=== PATIENT | male | born 1980 | race Caucasian/White ===

== ENCOUNTER 2019-04-10 15:18 | Emergency (ER) | payer SELFPAY ==
[~2019-04-10] VITALS: Wt 79.0 kg
[2019-04-10] MEDS ORDERED: PIPER-TAZO 3.375 GM IV (PMX) 100 ML IVPB STA (15:44)
[2019-04-10] MEDS ORDERED: VANCOMYCIN 1 GM (PMX) 250 ML IVPB STA (15:44)
[2019-04-10] MEDS ORDERED: CLINDAMYCIN 900 MG/D5W (PMX) 50 ML IVPB STA (15:44)
--- NOTE | 2019-04-10 19:07 | ERD ---
ER Documentation Chief Complaint Chief Complaint RIGHT UPPER ARM REDNESS, SWELLING S/P IN DRUG USE HPI This is a 38-year-old male with a past medical history of heroin abuse. The patient indicates he last used heroin intravenously roughly 6 hours prior to arrival. The patient states that several weeks ago he noticed swelling and redness to his right forearm. He indicates that he is injected multiple times into the right forearm. He also noticed pus coming from the right forearm. He said no fevers or shaking or chills. He states there is pain around the abscess site which he attempted to drain himself by pushing on the abscess site. He denies any difficulty breathing. He has no chest pain. ROS All systems reviewed and are negative except as per history of present illness. Medications Home Meds No Active Prescriptions or Reported Meds Allergies Allergies: Coded Allergies: No Known Allergy (Unverified , 04/10/19) PMhx/Soc Medical and Surgical Hx: pt denies Medical Hx, pt denies Surgical Hx Hx Alcohol Use: Yes (social) Hx Substance Use: Yes (IV heroin use in am) Hx Tobacco Use: Yes Smoking Status: Light tobacco smoker Physical Exam Vitals Vital Signs Date Temp Pulse Resp B/P (MAP) Pulse Ox O2 O2 Flow FiO2 Time Delivery Rate 04/10/19 98.1 68 18 121/68 99 15:23 (85) Physical Exam Constitutional:Well-developed. Well-nourished. HEENT:Normocephalic. Atraumatic.Pupils were 3 mm equal round reactive to light. Moist mucous membranes.No tonsillar exudates. Neck: No nuchal rigidity. No lymphadenopathy. No posterior cervical spine t enderness or step-offs. Respiratory: Not using accessory muscles of respiration.Lungs were clear to auscultation bilaterally. No rhonchi. No rales. No wheezing. Cardiovascular: Regular rate regular rhythm.No murmurs. No rubs were appreciated.S1, S2 normal. Distal pulses are palpable 2+ bilaterally. GI: Abdomen was soft. Nontender. Non Distended. No pulsatile abdominal masses or bruits. No rebound. No guarding. Bowel sounds were present and normal. Muscle skeletal: Full range of motion of both the upper and lower extremities bilaterally.Normal muscle tone.No assymetrical calf tenderness or swelling. No tenderness with flexion extension of the left of the right elbow. No tenderness with passive extension of the muscles of the right upper extremity. Skin: No petechia, no purpura. No lesions on the palms or the soles of the feet. No maculopapular rash. Multiple pot leavitt present on the flexor surfaces of the bilateral upper extremities. Erythremia warmth tenderness with induration over the flexor surface of the proximal right forearm. Compartments are soft of the bilateral upper extremities. Abscess site was actively draining pustular material. NEURO: Patient was alert, awake, orientated x3.No facial droop. Gait observed and normal with no ataxia.Speech had regular rate and rhythm. No focal neurological deficits. Result Diagram: 04/10/19 1616 04/10/19 1616 Results 24 hrs Laboratory Tests Test 04/10/19 16:16 04/10/19 16:24 White Blood Count 9.9 10^3/ul Red Blood Count 4.07 10^6/ul Hemoglobin 10.6 g/dl Hematocrit 32.8 % Mean Corpuscular Volume 80.6 fl Mean Corpuscular Hemoglobin 26.0 pg Mean Corpuscular Hemoglobin Concent 32.3 g/dl Red Cell Distribution Width 12.7 % Platelet Count 336 10^3/UL Mean Platelet Volume 9.2 fl Immature Granulocytes % 0.500 % Neutrophils % 70.8 % Lymphocytes % 19.6 % Monocytes % 7.6 % Eosinophils % 1.0 % Basophils % 0.5 % Nucleated Red Blood Cells % 0.0 /100WBC Immature Granulocytes # 0.050 10^3/ul Neutrophils # 7.0 10^3/ul Lymphocytes # 1.9 10^3/ul Monocytes # 0.8 10^3/ul Eosinophils # 0.1 10^3/ul Basophils # 0.1 10^3/ul Nucleated Red Blood Cells # 0.0 10^3/ul Prothrombin Time 14.0 Sec Prothrombin Time Ratio 1.1 INR International Normalized Ratio 1.07 Activated Partial Thromboplast Time 33.9 Sec Sodium Level 138 mmol/L Potassium Level 4.2 mmol/L Chloride Level 100 mmol/L Carbon Dioxide Level 28 mmol/L Anion Gap 10 Blood Urea Nitrogen 11 mg/dl Creatinine 0.74 mg/dl Est Glomerular Filtrat Rate mL/min > 60 mL/min Glucose Level 95 mg/dl Calcium Level 8.8 mg/dl Total Bilirubin 0.4 mg/dl Direct Bilirubin 0.00 mg/dl Indirect Bilirubin 0.4 mg/dl Aspartate Amino Transf (AST/SGOT) 32 IU/L Alanine Aminotransferase (ALT/SGPT) 37 IU/L Alkaline Phosphatase 115 IU/L Total Protein 8.8 g/dl Albumin 3.8 g/dl Globulin 5.00 g/dl Albumin/Globulin Ratio 0.76 Amylase Level 70 U/L Lipase 30 U/L POC Venous Lactate 1.0 mmol/L Current Medications Medications Dose Sig/Alejandra Start Time Status Last (Trade) Ordered Route PRN Stop Time Admin Dose Reason Admin Vancomycin 250 ml @ ONCE STAT 04/10/19 DC 04/10/19 HCl 125 mls/hr IVPB 15:44 04/10/19 17:47 17:43 Clindamycin 50 ml @ 50 ONCE STAT 04/10/19 DC 04/10/19 HCl/ mls/hr IVPB 15:44 04/10/19 16:52 Dextrose 16:43 Piperacillin 100 ml @ ONCE STAT 04/10/19 DC 04/10/19 Sod/ 200 mls/hr IVPB 15:44 04/10/19 16:31 Tazobactam 16:13 Sod Procedures/MDM The patient presented to the emergency department with a spreading erythematous superficial infection of the skin and subcutaneous tissues. My differential diagnosis included but was not limited to necrotizing fasciitis, lymphangitis, thrombophlebitis, deep vein thrombosis, allergic reaction, neoplasm, gout or ab scess. Predisposing factors of the progressive spread of erythema, warmth, pain and tenderness was considered such as lymphedema, tinea pedis, open wounds, prior trauma or surgery, pre-existing skin lesion (furuncle), retained foreign body, injection drug use or vascular or immune compromise. The patient was placed on antibiotics to cover Staphylococcus aureus, including resistant strains such as community-acquired methicillin-resistant S. aureus. The patient also had radiographic imaging which showed soft tissue swelling of his right upper extremity. His symptoms have been present for several weeks. There is no secondary changes to suggest osteo-mellitus or necrotizing fasciitis. There is no evidence of compartment syndromes. The patient did not require incision and drainage as the abscess site was actively draining. The patient was given broad-spectrum antibiotics which included vancomycin clindamycin and Zosyn. The patient had no leukocytosis and no left leg abnormalities. Observation Note: Time: 4 hours Family Hx: No Hypertension Evaluation: Multiple exams showed improving symptoms and no evidence of worsening of his symptoms. The patient was offered a trial of observation to be admitted to the hospital. However the patient said he wanted to leave and would continue with oral antibiotics as he states he needs to go to work first thing in the morning. Departure Diagnosis: Primary Impression: Cellulitis Site of cellulitis: extremity Site of cellulitis of extremity: upper extremity Laterality: right Qualified Codes: L03.113 - Cellulitis of right upper limb Additional Impression: Opiate abuse, continuous Condition: Fair SUSU MENDOZA MD Apr 10, 2019 19:04
[2019-04-10] MEDS ORDERED: CEPH-443 PO (19:08)
[2019-04-10] MEDS ORDERED: SULF1TAB31 PO (19:08)
[2019-04-10 19:55] VITALS: BP 104/70; PULSE 82; RESP 18
== END 2019-04-10 20:48 | disposition home or self-care (01) ==
LOC: E/R 15:18
DX: L03.113 Cellulitis of right upper limb (principal); F11.19 Opioid abuse with unspecified opioid-induced disorder; F17.210 Nicotine dependence, cigarettes, uncomplicated
CPT/HCPCS: 73090; 80053; 82150; 83605; 83690; 85025; 85610; 85730; 87040; 87070; 96374; 96375; 99284; J2543; J3370